=== PATIENT | female | born 1985 | race Caucasian/White ===

== ENCOUNTER 2017-01-09 08:55 | Inpatient (IN) | payer OTHER ==
[2017-01-09] MEDS ORDERED: DEXTROSE 5%-LACTATED RINGERS 1,000 ML IV SCH (09:15)
[2017-01-09] MEDS ORDERED: PROMETHAZINE HCL 25 MG/1 ML VIAL IVPUSH ONE (09:48)
[2017-01-09] MEDS ORDERED: BUTORPHANOL TARTRATE 1 MG/ML VIAL IVPB ONE (09:48)
[2017-01-09 10:30] LABS: BASOPHIL 0.3 % (0-2.0); EOSINOPHIL 3.3 % (0-4.5); MCH 30.5 pg (25.7-33.7); MCHC 33.3 g/dl (32.0-36.0); MEAN CELL VOLUME 91.4 fl (80-96); MEAN PLT VOLUME 8.8 fl (7.5-11.1); NEUTROPHILS 73.9 % (42.8-82.8); PLATELET COUNT 241 K/MM3 (134-434); WHITE BLOOD COUNT 17.4 K/mm3 (4.0-10.0)
[2017-01-09 10:31] VITALS: BMI 28.7
[2017-01-09 11:01] LABS: CALCIUM 8.2 mg/dL (8.5-10.1); CREATININE 0.5 mg/dL (0.55-1.02)
--- NOTE | 2017-01-09 11:07 | HP ---
Past Medical History - Primary Care Physician PCP:: Kayley Chua - Admission Chief Complaint: 31 yrs , 39 weeks, previous c/sx2& , c/o SROM since 3.30 am 01/09/17, followed by mild cramps History of Present Illness: [facility] uneventful. Wt gain 33 lbs . work Up : B neg, Rhogam taken at 28 weeks , Hbsag neg, Rubella pos,Rpr nr,Hiv neg Quantiferon not done, Gbs neg, .1 hr gtt 83. NTscreen was not done, Quad screen neg, . MFM , leve 2 sono noted from 08/23/17 antomy wnl , 18.3/7 weeks, vx ant placenta ,cx 3.75cm . 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 No: Migraine, Seizure Cardiovascular: No: HTN, Murmur Pulmonary: Yes: Asthma ...: 4 ...Para: 3 ...Term: 3 ...: 0 ...Spon : 0 ...Induced : 0 ...Multiple Gestation: 0 ...LMP: 04/04/16 ... Weeks Gestation by Dates: 40.6 ...EDC by Dates: 01/09/17 ...EDC by Sono: 01/15/17 (39 weeks by sono ) Additional OB History: G1 02/25/2002, 40 weeks, Primary c/sec 5'4" in [place]( age 16 yrs ). G2 07/11/2008 40 weeks Repeat c/section 6'9' in [place]. G3 02/19/2014 40.1 weeks 7'9' ( epidural), [facility] Psych: Yes: Anxiety Musculoskeletal: No: Bursitis Endocrine: No: Diabetes Mellitus, Hypothyroidism - Past Surgical History Past Surgical History: Yes: (02/2002, 07/2008) Hx Myomectomy: No Hx Transabdominal Cerclage: No - Smoking History Smoking history: Current every day smoker Have you smoked in the past 12 months: Yes Aproximately how many cigarettes per day: 5 - Alcohol/Substance Use Hx Alcohol Use: No History of Substance Use: reports: None - Social History History of Recent Travel: No Home Medications - Allergies Allergies/Adverse Reactions: Allergies Allergy/AdvReac Type Severity Reaction Status Date / Time Penicillins Allergy Severe Swelling Verified 01/09/17 09:47 - Home Medications Home Medications: Ambulatory Orders Miconazole Nitrate [Monistat 7] 44 gm VG HS #1 cmb.pf.crm 06/03/16 Physical Exam - Maternity Vital Signs: Vital Signs Temperature 98.2 F 01/09/17 10:17 Pulse Rate 77 01/09/17 10:17 Respiratory Rate 20 01/09/17 10:17 Blood Pressure 114/62 01/09/17 10:17 O2 Sat by Pulse Oximetry (%) Constitutional: Yes: Well Nourished, No Distress Eyes: Yes: WNL HENT: Yes: WNL, Other (broken teeth) Neck: Yes: WNL Cardiovascular: Yes: WNL Lungs: Clear to auscultation Breast(s): Yes: WNL - Abdominal Exam/OB Fundal Height: 40 Number of Fetuses: Single Presentation: Vertex Contractions: Yes Regularity: Irregular Monitor Mode: External Heart Rate (range): 120-130 Heart Rate Location: [facility] Category: I Accelerations: Uniform Decelerations: None - Vaginal Exam/OB Vaginal Bleediing: Light Speculum Exam: No Dilatation (cm): 3 Effacement (%): 50 Amniotic Membrane Status: Ruptured Nitrazine Test: Positive Amniotic Fluid: Yes: Clear Presentation: Vertex/Position Station: -3 - Physical Exam Musculoskeletal: Yes: WNL Extremities: Yes: WNL Edema: LLE: Trace, RLE: Trace Integumentary: Yes: Incision (pfannensteil scar), Tattoos Deep Tendon Reflex Grade: Normal +2 ...Motor Strength: WNL Psychiatric: Yes: WNL, Alert, Oriented - Labs Lab Results: CBC, BMP 01/09/17 10:00 Laboratory Tests 01/09/17 01/09/17 10:00 10:00 INR 0.90 PTT (Actin FS) 27.5 Sodium 140 Potassium 4.1 Chloride 108 H Carbon Dioxide 23 BUN 8 D Creatinine 0.5 L Random Glucose 90 D Calcium 8.2 L Problem List - Problems (1) with 39 completed weeks gestation Code(s): Z3A.39 - 39 WEEKS GESTATION OF (2) Previous section complicating Code(s): O34.21 - MATERNAL CARE FOR SCAR FROM PREVIOUS * DO NOT USE * (3) SROM (spontaneous rupture of membranes) Code(s): ZNQ4194 - (4) History of Code(s): Z98.89 - OTHER SPECIFIED POSTPROCEDURAL STATES * DO NOT USE * Assessment/Plan 31 yrs G$ [id number], previous c/sx2, & x1 , 39 weeks, SROM desires , eraly labor GBS neg, WBC count [id number] will start clindamycin 900 mg in 12 hrs from srom pt is aware of r/b/a of not ltd to rupture ut, hemorrhage, distress etc Plan TOLAC epidural for labor analgesia
[2017-01-09 11:12] LABS: INR 0.9 (0.82-1.09); PROTHROMBIN TIME (PATIENT) 9.9 SEC (9.98-11.88)
[2017-01-09 11:15] LABS: ACTIVATED PTT 27.5 SECONDS (26.9-34.4)
[2017-01-09] MEDS ORDERED: BUTORPHANOL TARTRATE 1 MG/ML VIAL IVPUSH ONE (11:49)
[2017-01-09] MEDS ORDERED: BISACODYL 10 MG SUPP.RECT RC PRN (12:18)
[2017-01-09] MEDS ORDERED: METHYLERGONOVINE MALEATE 0.2 MG/1 ML AMP IM PRN (12:18)
[2017-01-09] MEDS ORDERED: WITCH HAZEL 50% (TUCKS) 40 PAD/JAR PAD TP PRN (12:18)
[2017-01-09] MEDS ORDERED: BENZOCAINE 28 GM HEMORRHOIDAL OINTMENT TP PRN (12:18)
[2017-01-09] MEDS ORDERED: oxyCODONE HCL 5 MG TABLET PO PRN (12:18)
[2017-01-09] MEDS ORDERED: BENZOCAINE 20% 57 GM BOTTLE TP PRN (12:18)
--- NOTE | 2017-01-09 12:25 | PN ---
Progress Note, Labor Vaginal Exam #1 Labor Exam Date: 01/09/17 Labor Exam Time: 11:55 Heart Rate (range): 120 Dilatation: 10 Effacement (%): 100 Amniotic Membrane Status: Ruptured Presentation: Vertex/Position Station: +1 (+1/+2) Remarks: rpt pushing . IV stadol 1 mg + phenergan was given at 11.50 am then 7 cm 0 station
[2017-01-09] MEDS ORDERED: D5W-LR W/ 20 UNITS OXYTOCIN 1,000 ML IV SCH (12:30)
[2017-01-09] MEDS ORDERED: TUBERCULIN PPD 5 TU/0.1ML SYRINGE (IN PATIENT USE ONLY) ID ONE (13:00)
--- NOTE | 2017-01-09 14:03 | PN ---
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 ..Intrapartum course uneventful . Iv stadol 1mg + phenergan 25 mg stat one dose was given
[2017-01-09] MEDS: ACETAMINOPHEN 325 MG TABLET (FP) PO PRN ×2 (14:58→20:38)
[2017-01-09] MEDS: IBUPROFEN 600 MG TABLET (FP) PO PRN ×2 (14:59→20:38)
[2017-01-09 15:24] LABS: URINE MARIJUANA THC POSITIVE ng/ml (CUTOFF=50)
[2017-01-09] MEDS: FERROUS SO4 325 MG TABLET (FP) PO SCH (17:05)
[2017-01-10] MEDS: ACETAMINOPHEN 325 MG TABLET (FP) PO PRN ×3 (05:45→22:27)
[2017-01-10] MEDS: IBUPROFEN 600 MG TABLET (FP) PO PRN ×3 (05:46→22:26)
--- NOTE | 2017-01-10 07:57 | PN ---
Progress Note (short form) - Note Progress Note: ppd 1 doing well ,no c/o voids ok, no excess vaginal bleeding CBC, BMP 01/09/17 10:00 01/09/17 10:00 Last Vital Signs Temp Pulse Resp BP Pulse Ox 97.9 F 90 18 118/59 01/10/17 06:00 01/10/17 06:00 01/10/17 06:00 01/10/17 06:00 uterus firm, non tender, no cva lochia mild no calf tenderness plan cbc today, ambulate, d/c home in am
[2017-01-10] MEDS: FERROUS SO4 325 MG TABLET (FP) PO SCH ×2 (08:02→17:30)
[2017-01-10 08:39] LABS: MCH 30.6 pg (25.7-33.7); MCHC 33.7 g/dl (32.0-36.0); MEAN PLT VOLUME 9.2 fl (7.5-11.1); PLATELET COUNT 240 K/MM3 (134-434); WHITE BLOOD COUNT 22.4 K/mm3 (4.0-10.0)
[2017-01-10] MEDS ORDERED: PNEUMOC 13-VAL CONJ-DIP CRM/PF 0.5 ML DISP.SYRIN IM ONE (10:00)
[2017-01-10] MEDS ORDERED: DIPHTH,PERTUSS(ACELL),TET 0.5 ML DISP.SYRIN IM ONE (10:00)
[2017-01-10] MEDS ORDERED: PNEUMOCOCCAL 23 VACCINE 0.5 ML VIAL IM ONE (10:00)
[2017-01-10] MEDS: PRENATAL VITAMINS W/ FOLIC ACID TABLET (FP) PO SCH (10:46)
[2017-01-10 10:53] LABS: PLATELET ESTIMATE ADEQUATE (NORMAL)
[2017-01-10] MEDS ORDERED: SENNOSIDES/DOCUSATE COMBO (SENNA PLUS) TABLET (UD) PO PRN (22:00)
[2017-01-11] MEDS: IBUPROFEN 600 MG TABLET (FP) PO PRN ×3 (07:29→16:36)
[2017-01-11] MEDS: FERROUS SO4 325 MG TABLET (FP) PO SCH ×2 (07:30→16:38)
[2017-01-11] MEDS: ACETAMINOPHEN 325 MG TABLET (FP) PO PRN ×3 (07:30→16:37)
[2017-01-11 08:15] VITALS: BP 124/72; PULSE 78; TEMP 98.8
--- NOTE | 2017-01-11 08:22 | PN ---
Progress Note (short form) - Note Progress Note: ppd 2 doing well, no c/o abdomen soft ,uterus firm lochia mild CBC, BMP 01/10/17 07:45 01/09/17 10:00 Last Vital Signs Temp Pulse Resp BP Pulse Ox 98.8 F 78 20 124/72 01/11/17 07:20 01/11/17 07:20 01/11/17 07:20 01/11/17 07:20 ppd 1 elevtaed wbc, repeat cbc today , if normal d/c home rtc 4 weeks
[2017-01-11] MEDS: PRENATAL VITAMINS W/ FOLIC ACID TABLET (FP) PO SCH (09:10)
[2017-01-11 09:18] LABS: BASOPHIL 0.2 % (0-2.0); EOSINOPHIL 3.3 % (0-4.5); MCH 30.7 pg (25.7-33.7); MCHC 34.1 g/dl (32.0-36.0); MEAN CELL VOLUME 90.2 fl (80-96); MEAN PLT VOLUME 8.6 fl (7.5-11.1); NEUTROPHILS 78.7 % (42.8-82.8); PLATELET COUNT 222 K/MM3 (134-434); RDW 13.3 % (11.6-15.6); WHITE BLOOD COUNT 20.6 K/mm3 (4.0-10.0)
--- NOTE | 2017-01-11 17:27 | DS ---
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 No: Calf Tenderness Edema: No Integumentary: Yes: Incision (old pfannensteil scar) Neurological: Yes: WNL, Alert ...Motor Strength: WNL Psychiatric: Yes: WNL Labs: CBC, BMP 01/11/17 08:35 01/09/17 10:00 Laboratory Tests 01/09/17 12:02 U Marijuana (THC) Screen Positive Delivery - Delivery Vaginal Delivery: No Problems, V-Aleksandra Type of Anesthesia: None Episiotomy/Laceration: None EBL (cc): 250 Delivery, Single - Stages of Labor Date 1st Stage Initiatied: 01/09/17 Time 1st Stage Initiated: 03:30 Date 2nd Stage Initiated: 01/09/17 Time 2nd Stage Initiated: 11:55 Date of Delivery: 01/09/17 Time of Delivery: 12:02 Time Placenta Delivered: 12:07 Placenta: Yes: Spontaneous, Uterine Exploration (Ut is intact, & empty) - Condition of Field 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 ..Intrapartum course uneventful . Iv stadol 1mg + phenergan 25 mg stat one dose was given . post course was uneventful patient was referred to CPS by social work associate, she was approved by CPS to take baby home . discharge today Discharge Summary Reason For Visit: LABOR Current Active Problems History of (Acute) with 39 completed weeks gestation (Acute) Previous section complicating (Acute) SROM (spontaneous rupture of membranes) (Acute) , delivered (Acute) Condition: Stable - Instructions Diet, Activity, Other Instructions: Post Instructions DIET: Continue good diet high in protein, calcium, and iron rich foods. Drink at least eight (8) glasses of water daily in addition to other fluids. ct Regular diet MEDICATIONS: Continue vitamins and iron as previously directed. Motrin and Tylenol may be taken for minor discomfort. ACTIVITY: Mild to moderate exercise may be started in two (2) weeks. Take frequent rest periods. Resume normal activity after six (6) week check up. WOUND CARE OF OPERATIVE SITE: Continue use of perineal bottle until vaginal discharge stops. Keep area clean. Shower daily. Keep abdominal wound dry. Report any drainage or redness to physician. Tub baths, tampons and douches are not permitted for [address] Breast feeding & or Bottle feeding BREAST CARE: (For those that are not breast feeding): If engorgement occurs: Wear tight fitting bra. Take Tylenol or Motrin for pain. Apply cold packs (ice in bags to each breast ) FAMILY PLANNING: There are many control alternatives to pursue and they should be discussed at your first office visit. You may resume sexual activity after your six (6) week check up. (Remember, breast feeding is not a contraceptive) NEXT PHYSICIAN APPOINTMENT: Be certain to call for a six (6) week appointment, unless otherwise directed. Call Clinic or got to Emergency Dept if you have any of the following: Heavy vaginal bleeding Painful urination Leg pain Unusual odor noted to vaginal bleeding High fever Red streaking noted on breast Referrals: Kayley Chua MD [Staff Physician] - Disposition: HOME - Home Medications Comprehensive Discharge Medication List: Ambulatory Orders Acetaminophen [Tylenol .Regular Strength -] 650 mg PO Q3H PRN #0 tablet Ibuprofen [Motrin -] 200 mg PO Q4H PRN #0 tablet 01/09/17 Vitamins (Sjr) - 1 tab PO DAILY tablet 01/09/17 Ibuprofen [Motrin -] 600 mg PO QID #28 tablet 01/11/17
== END 2017-01-11 18:10 | disposition home or self-care (01) | DRG 560 ==
LOC: JLDR 08:55 → J3W 13:51
PROVIDERS: ADMIT Obstetrics & Gynecology; ATTEND Obstetrics & Gynecology
PROC: 10E0XZZ Delivery of Products of Conception, External Approach (ICD-10-PCS; principal; 2017-01-09)
DX: O34.211 Maternal care for low transverse scar from previous cesarean delivery (principal); Z3A.39 39 weeks gestation of pregnancy; Z37.0 Single live birth
CPT/HCPCS: 36415; 59409; 80048; 80307; 85025; 85461; 85610; 85730; 86593; 86850; 86900; 86901; 86999; 90715; 90732; G0009

== ENCOUNTER 2024-07-25 01:30 | Inpatient (IN) | payer OTHER ==
[2024-07-25] MEDS: LACTATED RINGERS SOLUTION 1000 ML INFUS.BAG IV ONE (02:55)
[2024-07-25 03:05] LABS: BASO % 0.4 % (0-2.0); EOS % 3.4 % (0-4.5); HEMOGLOBIN 11.7 GM/dL (10.7-15.3); LYMPH % 23.7 % (8-40); MCH 31.7 pg (25.7-33.7); MCHC 34.4 g/dl (32.0-36.0); MEAN CELL VOLUME 92.2 fl (80-96); MEAN PLT VOLUME 8.5 fl (7.5-11.1); MONO % 9.9 % (3.8-10.2); NEUT % 62.6 % (42.8-82.8); PLATELET COUNT 328 10^3/uL (134-434); RBC 3.69 M/mm3 (3.60-5.2); WHITE BLOOD COUNT 19.2 K/mm3 (4.0-10.0)
[2024-07-25 03:09] VITALS: BMI 30.2
[2024-07-25 03:14] LABS: INR 0.94 (0.83-1.09); PROTHROMBIN TIME (PATIENT) 10.6 SEC (9.7-13.0)
[2024-07-25 03:17] LABS: ACTIVATED PTT 26.6 SECONDS (25.2-36.5)
[2024-07-25] MEDS: VANCOMYCIN PREMIX 1.5 GM 1,500 MG/300 ML BAG IVPB SCH (03:30)
[2024-07-25] MEDS ORDERED: FENTANYL/BUPIVACAINE/NS/PF - PCEA - 50 ML DISP.SYRIN EP ONE ×3 (03:51→09:48)
[2024-07-25 04:06] LABS: BLOOD UREA NITROGEN 6.8 mg/dL (7-18); CALCIUM 9.1 mg/dL (8.5-10.1)
[2024-07-25 04:11] LABS: CREATININE 0.5 mg/dL (0.55-1.3)
[2024-07-25] MEDS: LACTATED RINGERS SOLUTION 1,000 ML/1,000 ML INFUS.BAG IV SCH (04:15)
[2024-07-25] MEDS ORDERED: BUTORPHANOL TARTRATE 2 MG/ML VIAL ONE (04:42)
[2024-07-25] MEDS ORDERED: PROMETHAZINE HCL 25 MG/1 ML VIAL ONE (04:42)
[2024-07-25] MEDS: PROMETHAZINE HCL 25 MG/1 ML VIAL IVPB ONE (05:15)
[2024-07-25] MEDS: BUTORPHANOL TARTRATE 1 MG/ML VIAL IVPB ONE (05:15)
[2024-07-25] MEDS ORDERED: OXYTOCIN 20 UNITS in 0.9% NS 20 UNIT/1,000 ML INFUS.BAG IV ONE (07:09)
[2024-07-25] MEDS ORDERED: LIDOCAINE HCL 1% PRESERVATIVE FREE - 30ML VIAL ONE (07:09)
[2024-07-25] MEDS ORDERED: BUPIVACAINE HCL/PF 0.25% (2.5MG/ML) 10 ML VIAL ONE (07:30)
[2024-07-25] MEDS: FENTANYL/BUPIVACAINE/NS/PF - PCEA - 50 ML DISP.SYRIN EP SCH ×2 (07:40→09:09)
[2024-07-25] MEDS ORDERED: NALOXONE HCL 0.4 MG/ML VIAL IVPUSH PRN (07:59)
[2024-07-25] MEDS: OXYTOCIN 20 UNITS in 0.9% NS 20 UNIT/1,000 ML INFUS.BAG IV SCH (10:17)
[2024-07-25 11:02] LABS: CORD BASE EXCESS -5.4 mmol/L (0-2); CORD HCO3 18.4 mmHg (20-29); CORD PCO2 32.4 mmHg (30-78); CORD pH 7.373 (7.14-7.44)
[2024-07-25] MEDS: VANCOMYCIN HCL 1,500 MG in DEXTROSE 5%-WATER - 250 ML IVPB SCH (11:04)
[2024-07-25] MEDS ORDERED: IBUPROFEN 600 MG TABLET (FP) PO ONE (11:35)
[2024-07-25] MEDS: IBUPROFEN 600 MG TABLET (FP) PO PRN (11:40)
[2024-07-25] MEDS ORDERED: BISACODYL 10 MG SUPP.RECT RC PRN (11:45)
[2024-07-25] MEDS ORDERED: BENZOCAINE 28 GM HEMORRHOIDAL OINTMENT TP PRN (11:45)
[2024-07-25] MEDS ORDERED: METHYLERGONOVINE MALEATE 0.2 MG/1 ML AMP IM PRN (11:45)
[2024-07-25] MEDS ORDERED: BENZOCAINE 20% 57 GM BOTTLE TP PRN (11:45)
[2024-07-25] MEDS ORDERED: ACETAMINOPHEN 325 MG TABLET (FP) PO PRN (11:45)
[2024-07-25 14:42] LABS: COCAINE, UR NEGATIVE (NEGATIVE); URINE AMPHETAMINES NEGATIVE (NEGATIVE); URINE BARBITURATES NEGATIVE (NEGATIVE)
[2024-07-25 14:43] LABS: METHADONE, UR NEGATIVE (NEGATIVE); OPIATES, URI NEGATIVE (NEGATIVE); PHENCYCLIDINE,URINE NEGATIVE (NEGATIVE); URINE BENZODIAZEPINES NEGATIVE (NEGATIVE)
[2024-07-25] MEDS: WITCH HAZEL 50% (TUCKS) 40 PAD/JAR PAD TP PRN (20:26)
[2024-07-25] MEDS: diphenhydrAMINE HCL 25 MG CAPSULE (FP) PO PRN (21:40)
[2024-07-25] MEDS: HYDROCORTISONE 1% TOPICAL CREAM 30 GM TUBE TP SCH (21:40)
[2024-07-26] MEDS: oxyCODONE HCL 5 MG TABLET PO PRN (01:56)
[2024-07-26 07:09] LABS: BASO % 0.3 % (0-2.0); EOS % 3.8 % (0-4.5); HEMATOCRIT 32.3 % (32.4-45.2); HEMOGLOBIN 10.9 GM/dL (10.7-15.3); LYMPH % 24.3 % (8-40); MCH 31.5 pg (25.7-33.7); MCHC 33.8 g/dl (32.0-36.0); MEAN CELL VOLUME 93.2 fl (80-96); MEAN PLT VOLUME 8.6 fl (7.5-11.1); MONO % 8.3 % (3.8-10.2); NEUT % 63.3 % (42.8-82.8); PLATELET COUNT 282 10^3/uL (134-434); RBC 3.46 M/mm3 (3.60-5.2); RDW 13.1 % (11.6-15.6)
[2024-07-26] MEDS: PRENATAL VITAMINS W/ FOLIC ACID TABLET (FP) PO SCH (09:41)
[2024-07-26] MEDS: PNEUMOC 20-VAL CONJ-DIP CRM/PF 0.5 ML SYRINGE IM ONE (16:52)
[2024-07-26] MEDS: VANCOMYCIN 1,500 MG in DEXTROSE 5%-WATER - 500 ML IVPB SCH (20:43)
[2024-07-26] MEDS ORDERED: SENNOSIDES/DOCUSATE COMBO (SENNA PLUS) TABLET (UD) PO PRN (22:00)
[2024-07-27 09:18] VITALS: BP 111/82; PULSE 69; RESP 16; TEMP 98.5
[2024-07-28 10:19] LABS: POC NITRAZINE POS
== END 2024-07-27 12:40 | disposition home or self-care (01) | DRG 560 ==
LOC: JLDR 01:30 → J3W 12:42
PROVIDERS: ADMIT Obstetrics & Gynecology; ATTEND Obstetrics & Gynecology
PROC: 10E0XZZ Delivery of Products of Conception, External Approach (ICD-10-PCS; principal; 2024-07-25)
PROC: 3E0334Z Introduction of Serum, Toxoid and Vaccine into Peripheral Vein, Percutaneous Approach (ICD-10-PCS; 2024-07-25)
DX: O99.824 Streptococcus B carrier state complicating childbirth (principal); O26.893 Other specified pregnancy related conditions, third trimester; Z67.91 Unspecified blood type, Rh negative; Z3A.38 38 weeks gestation of pregnancy; Z37.0 Single live birth
CPT/HCPCS: 36415; 36600; 59409; 80048; 80307; 82803; 82962; 83986-QW; 85025; 85461; 85610; 85730; 86780; 86850; 86900; 86901; 88307-TC; 90677; 96372; G0009; J2790